=== PATIENT | female | born 1990 | race Caucasian/White ===

== ENCOUNTER 2022-11-14 11:45 | Inpatient (IN) | payer OTHER ==
[~2022-11-14] VITALS: Ht 165.1 cm; Wt 3.2 kg
[2022-11-17] MEDS ORDERED: COMPLETE NATAL1 EACH PO (06:57)
[2022-11-20] MEDS ORDERED: IBUPROFEN800 MG PO (07:45)
== END 2022-11-20 10:57 | disposition home or self-care (01) | DRG 785 ==
LOC: OB/GYN 11-17 06:34 → O/R 11-17 06:34 → OB/GYN 11-17 10:30
PROVIDERS: ADMIT Specialist; ATTEND Specialist
PROC: 0UB70ZZ Excision of Bilateral Fallopian Tubes, Open Approach (ICD-10-PCS; 2022-11-17)
PROC: 4A1HXCZ Monitoring of Products of Conception, Cardiac Rate, External Approach (ICD-10-PCS; 2022-11-17)
PROC: 10D00Z1 Extraction of Products of Conception, Low, Open Approach (ICD-10-PCS; principal; 2022-11-17 10:30)
DX: O34.211 Maternal care for low transverse scar from previous cesarean delivery (principal); Z3A.38 38 weeks gestation of pregnancy; Z37.0 Single live birth; Z20.822 Contact with and (suspected) exposure to COVID-19; Z30.2 Encounter for sterilization